=== PATIENT | male | born 1960 | race Caucasian/White ===

== ENCOUNTER 2020-08-18 06:41 | Observation (INO) | payer BC, OTHER ==
[~2020-08-18] VITALS: Ht 182.9 cm; Wt 99.8 kg
[2020-08-18] VITALS (8 sets, daily range): BP systolic 128–162; BP diastolic 67–95
[2020-08-18] MEDS ORDERED: ASA81BEC PO (07:33)
[2020-08-18] MEDS ORDERED: LIPITOR 20 MG T20 M1 PO (07:35)
[2020-08-18] MEDS ORDERED: NITROSTAT0.4 M1 SUBLING (07:36)
[2020-08-18] MEDS ORDERED: CELEBREX 200 M200 M1 PO (07:36)
[2020-08-18] MEDS ORDERED: TUMS200 MG PO (07:37)
[2020-08-18] MEDS ORDERED: TYLENOL EXTRA500 MG PO (07:38)
--- NOTE | 2020-08-18 11:36 | EKG ---
[facility] [place] [address] ELECTROCARDIOGRAM REPORT Name: ADONAY MOREAU [id number] Admission: 08/18/20 Attend Phys: Cain Samaniego MD, Discharge: Date of : 58 Report #: [id number] [facility] Test Date: 2020-08-18 Test Time: 07:36:58 Pat Name: ADONAY MOREAU Department: Room: Gender: Enrobing Machine [facility] 1960 Requested By: Cain Samaniego Order Number: [id number] : Sky Painter Measurements Intervals [place] Rate: 57 P: 35 OK: 188 QRS: -4 QRSD: 116 T: 20 QT: 420 QTc: 409 Interpretive Statements Sinus rhythm Probable left atrial enlargement No previous ECG available for comparison Electronically Signed On 08-18-2020 11:36:49 CAFETERIA CLERK by Sky Painter [email or web address] <ELECTRONICALLY SIGNED> By: Sky Painter MD, [facility] 08/18/20 1136 0736 0736 Sky Painter MD, FACC /EPI
--- NOTE | 2020-08-18 14:59 | 2DMMODE ---
[facility] [place] [address] 2 D/M-MODE ECHOCARDIOGRAM Name: ADONAY MOREAU Room #: 214-P [facility] M.R.#: [id number] Admission: 08/18/20 Attend Phys: Cain Samaniego MD, Discharge: Date of : 58 Report #: [id number] THIS REPORT FOR: cc: Ryan Zambrano Jeffrey W. DO Lundgren, Craig H. MD [facility] ~ APPROVED REPORT Study performed: 08/18/2020 13:46:34 EXAM: Comprehensive 2D, Doppler, and color-flow Echocardiogram Patient Location: [facility] Room #: 1 Status: routine BSA: 2.26 HR: 65 bpm BP: 147/88 mmHg Other Information Study Quality: Adequate Indications Dyspnea Chest Pain 2D Dimensions RVDd: 27.47 mm IVSd: 10.44 (7-11mm) LVOT Diam: 29.14 (18-24mm) LVDd: 38.19 mm PWd: 12.55 (7-11mm) LVDs: 23.89 (25-40mm) Left Atrium: 37.19 (27-40mm) Aortic Root: 32.20 mm Volumes Left Atrial Volume (Systole) Single Plane 4CH: 97.75 mL Single Plane 2CH: 27.46 mL Aortic Valve AoV Peak Eugenio.: 1.33 m/s AO Peak Gr.: 7.05 mmHg LVOT Max P.41 mmHg LVOT Max V: 0.92 m/s SRUTHI Vmax: 4.64 cm2 [facility] [address] [address] 2 D/M-MODE ECHOCARDIOGRAM Name: PRIETOADONAY Room #: 214-P [facility] IN M.R.#: [id number] Admission: 08/18/20 Attend Phys: Cain Samaniego, Discharge: Date of : 58 Report #: [id number] Mitral Valve MV Peak Gr.: 1.91 mmHg MV Mean Gr.: 0.61 mmHg E/A Ratio: 1.1 MV Decel. Time: 825.84 ms MV E Max Eugenio.: 0.40 m/s MV A Eugenio.: 0.38 m/s MV Max Eugenio.: 0.69 m/s MV Mean Eugenio.: 0.35 m/s MV VTI: 293.37 mm MV PHT: 239.49 ms IVRT: 129.18 ms Pulmonary Valve PV Peak Eugenio.: 0.89 m/s PV Peak Gr.: 3.15 mmHg Pulmonary Vein P Vein S: 0.44 m/s P Vein A: 0.36 m/s P Vein D: 0.22 m/s P Vein A Dur.: 129.2 msec P Vein S/D Ratio: 2.00 Tricuspid Valve TR Peak Eugenio.: 1.94 m/s TR Peak Gr.: 15.03 mmHg Left Ventricle The left ventricle is normal size. There is normal LV segmental wall motion. There is normal left ventricular wall thickness. The left ventricular systolic function is normal. LVEF is 60%. Mild diastolic dysfunction is present (impaired relaxation pattern). Right Ventricle The right ventricle is normal size. The right ventricular systolic function is normal. Atria The left atrium size is normal. The right atrium size is normal. Aortic Valve The aortic valve is normal in structure. No aortic regurgitation is present. There is no aortic valvular stenosis. Mitral Valve The mitral valve is normal in structure. There is no mitral valve regurgitation noted. No evidence of mitral valve stenosis. [facility] [address] [place] [address] 2 D/M-MODE ECHOCARDIOGRAM Name: ADONAY MOREAU Room #: 214-[facility] IN .R.#: [id number] Admission: 08/18/20 Attend Phys: Cain Samaniego, Discharge: Date of : 58 Report #: [id number] Tricuspid Valve The tricuspid valve is normal in structure. Trace to mild tricuspid regurgitation. Pulmonic Valve Pulmonic valve is not well visualized. Great Vessels The aortic root is normal in size. IVC is normal in size and collapses >50% with inspiration. Pericardium There is no pericardial effusion. <Conclusion> The left ventricular systolic function is normal. There is normal LV segmental wall motion. LVEF is 60%. Mild diastolic dysfunction The aortic valve is normal in structure. No aortic regurgitation or stenosis The mitral valve is normal in structure. No mitral valve regurgitation Pulmonary artery pressure could not be reliably ascertained. There is no pericardial effusion. <ELECTRONICALLY SIGNED> By: Baljeet Hill MD, [facility] 08/18/20 1458 1458 1458 Baljeet Hill MD, FACC /INF
--- NOTE | 2020-08-18 20:10 | NUR ---
08/18/20 PATIENT ADMIT FROM UROGYNECOLOGY PHYSICIAN POST STENT PLACEMENT. RIGHT FEM SITE CLEAN, DRY, AND INTACT ON ARRIVAL. NO BLEEING NO HEMATOMA. SITE REMAINED DRY AND INTACT WITHOUT BLEEDING OR HEMATOMA THROUGHOUT SHIFT. PATIENT EDUCATED ON STENT PLACEMENT AND TO NOTIFY STAFF WITH SIGNS OF BLEEDING. PATIENT AMBULATED AFTER BEDREST COMPLETE. PROGRESSING TO GOALS OF CARE.
[2020-08-19 05:16] LABS: HEMATOCRIT 42.3 % (42.0-52.0); MCH 30.2 pg (26.0-34.0); MCHC 33.2 g/dL (28.0-37.0); MCV 91.2 fL (80.0-100.0); RBC 4.64 mil/uL (4.50-6.00); RDW 13.4 % (10.5-14.5); WBC 8.3 thou/uL (4.0-11.0)
[2020-08-19 05:35] LABS: ALBUMIN 3.4 g/dL (3.4-5.0); ANION GAP 8 mmol/L (7-16); BUN 18 mg/dL (7-18); CALCIUM 8.7 mg/dL (8.5-10.1); CHLORIDE 104 mmol/L (98-107); CHOLESTEROL 192 mg/dL (<200); CO2 26 mmol/L (21-32); GLUCOSE 96 mg/dL (74-106); HDL CHOLESTEROL 41 mg/dL (>40); LDL CHOLESTEROL 123 mg/dL (<100); POTASSIUM 3.8 mmol/L (3.5-5.1); SGOT 21 U/L (15-37); SGPT 33 U/L (30-65); SODIUM 138 mmol/L (136-145); TC:HDL 4.7 Ratio (Not establshd); TOTAL BILIRUBIN 0.5 mg/dL (0.2-1.0); TOTAL PROTEIN 6.7 g/dL (6.4-8.2); TRIGLYCERIDE 141 mg/dL (<150); TROPONIN-I <0.06 ng/mL (<0.06); VLDL 28 mg/dL (<40)
[2020-08-19 05:37] LABS: SERUM ASSESSMENT Clear
--- NOTE | 2020-08-19 07:25 | NUR ---
PATIENTS CARES WERE ASSUMED AT SHIFT CHANGE. PATIENT WAS ASSESSED AND MEDS WERE PASSEDPATIENT IS TO BE DISCHARGED THIS MORNING. HE IS AN 23 HOUR ADMITT. THIS GENTALMAN IS AN ABLE TO BE UP AD DIAMANTE IN HIS ROOM, ROUNDS WERE MADE. THE BED IS IN A LOW AND LOCKED POSITION
--- NOTE | 2020-08-19 08:02 | EKG ---
[facility] [place] [facility] [email or web address] [address] ELECTROCARDIOGRAM REPORT Name: ADONAY MOREAU Room #: 214-P [employer] M.R.#: [id number] Admission: 08/18/20 Attend Phys: Cain Samaniego MD, Discharge: Date of : 58 Report #: [id number] [facility] [place] Test Date: 2020-08-19 Test Time: 07:12:43 Pat Name: ADONAY MOREAU Department: Room: 214 P Gender: M Turn Out Worker: ZOYA : 1960 Requested By: Paulette Contreras Order Number: [id number] MD: Baljeet Hill Measurements Intervals [place] Rate: 64 P: 16 MT: 178 QRS: -15 QRSD: 110 T: 15 QT: 429 QTc: 443 Interpretive Statements Sinus rhythm Incomplete RBBB and LAFB Baseline wander in lead(s) V1,V2 Compared to ECG 08/18/2020 07:36:58 No significant change was found Electronically Signed On 08-19-2020 8:01:57 CUSTOMER SERVICE SALES CONSULTANT by Baljeet Hill [email or web address] <ELECTRONICALLY SIGNED> By: Baljeet Hill MD, [facility] 08/19/20800 1 1 Baljeet Hill MD, [facility] /EPI
[2020-08-19] MEDS ORDERED: LOSARTAN POTASS50 MG PO (08:09)
[2020-08-19] MEDS ORDERED: EFFIENT10 MG PO (08:09)
[2020-08-19 11:03] VITALS: BP 150/95
--- NOTE | 2020-08-19 11:51 | NUR ---
ASSUMED CARE OF PT AT SHIFT CHANGE. ASSESSMENTS CHARTED. MEDS GIVEN PER SEP. PT A&OX2, NO C/O PAIN. R GROIN SITE CDI, NO BRUISING OR HEMATOMA. DISCHARGE ORDERS AND INSTRUCTIONS COMPLETE. IV AND TELE DC'D. THIS NURSE WALKED PT OUT TO MAIN ENTRANCE WHERE WAS WAITING IN CAR.
--- NOTE | 2020-08-19 13:28 | CATHLAB ---
[facility] [place] [address] INVASIVE PROCEDURE REPORT Name: ADONAY MOREAU Room #: 214-P [facility] Chavez#: [id number] Admission: 08/18/20 Attend Phys: Cain Samaniego MD, Discharge: 08/19/20 Date of : 58 Report #: [id number] THIS REPORT FOR: cc: Ryan Zambrano Jeffrey W. DO Mancuso, Gerald M. MD [facility] ~ APPROVED REPORT Study performed: 08/18/2020 08:16:21 Patient Details Patient Status: Out-Patient Room #: The patient is a 59 year-old male Event Personnel Cain Samaniego Patent Legal Assistant, Emmy Luis RTR, MIXED CROP [employer] LIVESTOCK FARMER Monitor, Jone Ruby RN RN, Ashlee Brown Scrmarlen Procedures Performed Art Access - R femoral artery* Left Heart Cath w/or w/o Coronaries [id number] [facility] NOEMI Place w/wo Plasty Single PDA 712401 77174 Initial Mod Sed Same Phys/QHP Gr5y 635434 20828 Mod Sed Same Phys/QHP Ea 422841 Aortogram Abdominal Peripheral Angio 747268 Hemostasis w/ Mynx Indication Dyspnea, Chest pain Procedure Narrative The Right Groin^ was infiltrated with 1% Lidocaine subcutaneous anesthesia. A PINNACLE 6FR Sheath #[id number] sheath was inserted into the RFA^. Coronary angiography was performed using coronary diagnostic catheters. The right coronary system was accessed and visualized with a JR4 catheter. The left coronary system was accessed and visualized with a JL4 catheter. The left ventricle was accessed and visualized with a PIGTAIL catheter. Left ventriculogram was performed in 30 degree projection. An aortogram of the abdominal aorta was performed. Closure device was deployed with a 6 Fr MYNXGRIP 6/7F #[id number]. Hemostasis was obtained with manual pressure following sheath removal without any complications. The patient tolerated the procedure well and there were no complications associated with the procedure. There was no hematoma. MYNXGRIP failed; manual pressure was held for 20 minutes. [facility] [address] [place] [address] INVASIVE PROCEDURE REPORT Name: ADONAY MOREAU Room #: 214-P [facility].#: [id number] Admission: 08/18/20 Attend Phys: Cain Samaniego, Discharge: 08/19/20 Date of : 58 Report #: [id number] Intraoperative Conscious Sedation Sedation start time: 09:01 Case end Time: 10:29 Fentanyl 50 mcg Versed 1 mg Fluoro Time: 6.10 minutes Dose: DAP 60306.10 cGycm2 1836 mGy Contrast Type and Amount: Omnipaque 160 ml Hemodynamics The aortic pressure is 154/72 mmHg with a mean of 91 mmHg. The left ventricular pressure is 147/5 mmHg with a mean of mmHg. The left ventricular end diastolic pressure is 20 mmHg. PCI Technique Lesion Percutaneous coronary intervention was performed on the right posterior descending artery. A LAUNCHER 6FR JR 4 #[id number] Guide Catheter was used to engage the ostium. A Luge Wire .014 x 182CM #[id number] Interventional Guidewire was used to cross the lesion. BALLOON DILATION A Balloon catheter Sprinter OTW 2.25 x 12 #[id number] was inserted and inflated up to 10.00atm for 24seconds. Additional Inflation: 12.00atm for 19seconds. STENT DEPLOYMENT A drug-eluting stent RESOLUTE JONATHAN RX 2.25 X 12 #[id number] was inserted and inflated up to 14.00atm for 24seconds. Conclusion #1. Successful PTCA stent of a high-grade proximal mid PDA lesion. Placement of a 2.25 x 12 resolute [place] 0% residual LIAM grade III flow #2 dominant right coronary artery which gave rise to this PDA had mild disease. #3 left main with mild disease giving rise to LAD and circumflex. #4 proximal LAD with an eccentric 50 to 60% lesion with diffuse disease and a type I LAD that stops short of the apex. #5 circumflex OM nondominant with mild disease. #6 normal left jugular size and systolic function EF 60%. #7 abdominal aortogram with mild disease no aneurysm is noted. Dual supply to the right kidney single left renal artery with no significant disease. Recommendations and plan: Continue aggressive risk factor [facility] [address] [place] [address] INVASIVE PROCEDURE REPORT Name: PRIETOADONAY Room #: 214-P [facility] IN M.R.#: [id number] Admission: 08/18/20 Attend Phys: Cain Samaniego, Discharge: 08/19/20 Date of : 58 Report #: [id number] modification. Dual antiplatelet therapy has been initiated. Patient transferred in stable condition to CCU to follow post coronary stent protocol. <ELECTRONICALLY SIGNED> By: Cain Samaniego MD, FACC 08/19/20 1327 132 132 Cain Samaniego MD, FACC /INF
== END 2020-08-19 11:35 | disposition home or self-care (01) ==
LOC: CATH 06:41 → 2N 14:40
PROVIDERS: Nurse Practitioner; ADMIT Internal Medicine Cardiovascular Disease; ATTEND Internal Medicine Cardiovascular Disease
DX: I25.110 Atherosclerotic heart disease of native coronary artery with unstable angina pectoris (principal); E78.5 Hyperlipidemia, unspecified; I10 Essential (primary) hypertension; I45.10 Unspecified right bundle-branch block; Z79.899 Other long term (current) drug therapy; Z79.82 Long term (current) use of aspirin

== ENCOUNTER → 2021-07-20 | Outpatient (CLI) | payer BC, OTHER ==
[~2021-07-20] VITALS: Ht 182.9 cm; Wt 100.0 kg
[~2021-07-20] MED LIST: ASA81BEC PO; CELEBREX 200 M200 M1 PO; CRESTOR40 MG PO; EFFIENT10 MG PO; LIPITOR 20 MG T20 M1 PO; LOSARTAN POTASS50 MG PO; NITROSTAT0.4 M1 SUBLING; TUMS200 MG PO; TYLENOL EXTRA500 MG PO; VITAMIN D310 MC1 PO
[2021-07-20 07:26] VITALS: BP 131/81
[2021-07-20 07:31] LABS: HEMATOCRIT 42.9 % (42.0-52.0); HEMOGLOBIN 14.3 gm/dL (14.0-18.0); MCH 30.3 pg (26.0-34.0); MCHC 33.4 g/dL (28.0-37.0); MCV 90.9 fL (80.0-100.0); RBC 4.72 mil/uL (4.50-6.00); RDW 14.5 % (10.5-14.5); WBC 5.7 thou/uL (4.0-11.0)
[2021-07-20 07:54] LABS: CALCIUM 9.2 mg/dL (8.5-10.1); POTASSIUM 4.4 mmol/L (3.5-5.1)
--- NOTE | 2021-07-20 09:27 | EKG ---
[facility] [employer] [place] [address] ELECTROCARDIOGRAM REPORT Name: ADONAY MOREAU Room #: [facility]#: [id number] Admission: 07/20/21 Attend Phys: Cain Samaniego MD, Discharge: Date of : 58 Report #: [id number] [facility] Test Date: 2021-07-20 Test Time: 07:40:25 Pat Name: ADONAY MOREAU Department: Room: Gender: Dock Associate: : 1960 Requested By: Cain Samaniego Order Number: [id number] MD: Baljeet Hill Measurements Intervals [place] Rate: 55 P: 35 [place]: 185 QRS: 0 QRSD: 108 T: 39 QT: 435 QTc: 416 Interpretive Statements Sinus bradycardia Abnormal R-wave progression, early transition Compared to ECG 08/19/2020 07:12:43 ST (T wave) deviation now present Left anterior fascicular block no longer present Electronically Signed On 07-20-2021 9:27:47 METAL ORGAN PIPE MAKER by Baljeet Hill [email or web address] <ELECTRONICALLY SIGNED> By: Baljeet Hill MD, [facility] 07/20/21926 9 9 Baljeet Hill MD, [facility] /EPI
--- NOTE | 2021-07-24 16:51 | CATHLAB ---
[facility] [place] [address] INVASIVE PROCEDURE REPORT Name: ADONAY MOREAU Room #: [facility] Chavez#: [id number] Admission: 07/20/21 Attend Phys: Cain Samaniego MD, Discharge: Date of : 58 Report #: [id number] THIS REPORT FOR: cc: Ryan Zambrano Jeffrey W. DO Mancuso, Gerald M. MD [facility] ~ APPROVED REPORT Study performed: 07/20/2021 08:26:01 Patient Details Patient Status: Out-Patient Room #: The patient is a 60 year-old male Event Personnel Cain Samaniego Facilities Maintenance Assistant, Emmy Luis RTR, JAYDEN Scrub, Samreen Montiel RTR Scrub, Ashlee Brown Monitor, Jone Ruby RN insurance clerk Performed Art Access - R femoral artery* David Access - R femoral vein Right and Left Heart Cath w/or w/o Coronarie [id number] [facility] [address] Initial Mod Sed Same Phys/QHP Gr5y 037316 50205 Mod Sed Same Phys/QHP Ea 182471 Hemostasis w/ Mynx Indication Chest pain Procedure Narrative The Right Groin^ was infiltrated with subcutaneous anesthesia. A PINNACLE 6FR Sheath #[id number] sheath was inserted into the RFA 6F^. Coronary angiography was performed using coronary diagnostic catheters. The right coronary system was accessed and visualized with a JR4 catheter. The left coronary system was accessed and visualized with a JL4 catheter. The left ventricle was accessed and visualized with a STR PIG catheter. Left ventriculogram was performed in 30 degree projection. Hemostasis was obtained with manual pressure following sheath removal without any complications. The patient tolerated the procedure well and there were no complications associated with the procedure. There was no hematoma. Manual hold for venious Intraoperative Conscious Sedation Sedation start time: 902 Case end Time: [facility] [place] [address] INVASIVE PROCEDURE REPORT Name: ADONAY MOREAU Room #: [facility] Kathy#: [id number] Admission: 07/20/21 Attend Phys: Cain Samaniego, Discharge: Date of : 58 Report #: [id number] 0950 Fentanyl 100 mcg Versed 2 mg Fluoro Time: 2.5 minutes Dose: DAP 7139.24 cGycm2 892 mGy Contrast Type and Amount: 140ml Hemodynamics The right atrial mean pressure is 9 mmHg. The right ventricular pressure is 33/-3 mmHg. The pulmonary artery pressure is 26/12 mmHg with a mean of 18 mmHg. The mean pulmonary capillary wedge pressure is 15 mmHg. The aortic pressure is 132/63 mmHg with a mean of 67 mmHg. The left ventricular pressure is 154/5 mmHg with a mean of mmHg. The left ventricular end diastolic pressure is 22 mmHg. The cardiac output using thermo method is 5.50 L/min. The cardiac index using thermo method is 2.44 L/min/m2. Conclusion #1 Left main with mild disease giving rise to LAD and circumflex. #2 the LAD is a moderate disease throughout there is a mid vessel section of 60% but this is feeling a relatively smaller and attenuated distal vessel which is moderately diseased. No indication for intervention and no change from prior exam. #3 circumflex OM has mild to moderate irregularities also relatively small but nondominant no high-grade occlusive disease #4 dominant right coronary artery is widely patent PDA PEGGY widely patent. #5 normal left ventricular size and systolic function EF 55% Recommendations and plan: Continue aggressive risk factor modification. I do not see significant progression of disease in the LAD system. Moderately diseased throughout. No strong indication for intervention. Patient will follow-up with Dr. Zambrano stress testing in 6 to 12 months. <ELECTRONICALLY SIGNED> By: Cain Samaniego MD, FACC 07/24/211650 50 50 Cain Samaniego MD, FACC /INF
== END | disposition home or self-care (01) ==
LOC: CATH 06:24
PROVIDERS: ATTEND Internal Medicine Cardiovascular Disease
DX: R07.9 Chest pain, unspecified (principal); I25.10 Atherosclerotic heart disease of native coronary artery without angina pectoris; E78.5 Hyperlipidemia, unspecified; I10 Essential (primary) hypertension; K21.9 Gastro-esophageal reflux disease without esophagitis; Z98.890 Other specified postprocedural states; Z79.899 Other long term (current) drug therapy; Z90.49 Acquired absence of other specified parts of digestive tract; Z82.49 Family history of ischemic heart disease and other diseases of the circulatory system